=== PATIENT | female | born 1980 | race African-American/Black ===

== ENCOUNTER 2023-08-30 14:12 | Day surgery (SDC) | payer OTHER ==
[2023-08-30 14:42] VITALS: BP 123/62; PULSE 76; RESP 18; TEMP 98.2
[2023-08-30] MEDS ORDERED: FERRIC CARBOXYMALTOSE 750 MG in SODIUM CHLORIDE 250 ML IVPB SCH (14:45)
== END 2023-08-30 16:00 | disposition home or self-care (01) ==
LOC: FINFUSION 14:12 → FM/S 14:23 → FINFUSION 16:00
PROVIDERS: ATTEND Family Medicine
PROC: 3E033GC Introduction of Other Therapeutic Substance into Peripheral Vein, Percutaneous Approach (ICD-10-PCS; principal; 2023-08-30)
DX: D50.9 Iron deficiency anemia, unspecified (principal); E11.9 Type 2 diabetes mellitus without complications; R53.82 Chronic fatigue, unspecified
CPT/HCPCS: 81025; 96365; J1439

== ENCOUNTER 2023-09-06 12:54 | Day surgery (SDC) | payer OTHER ==
[2023-09-06] MEDS ORDERED: FERRIC CARBOXYMALTOSE 750 MG in SODIUM CHLORIDE 250 ML IVPB SCH (13:30)
[2023-09-06 14:36] VITALS: BP 108/67; PULSE 80; RESP 15; TEMP 98.4
== END 2023-09-06 14:38 | disposition home or self-care (01) ==
LOC: FINFUSION 12:54 → FM/S 12:55 → FINFUSION 14:38
PROVIDERS: ATTEND Family Medicine
PROC: 3E033GC Introduction of Other Therapeutic Substance into Peripheral Vein, Percutaneous Approach (ICD-10-PCS; principal; 2023-09-06)
DX: D50.9 Iron deficiency anemia, unspecified (principal)
CPT/HCPCS: 96365; J1439